=== PATIENT | female | born 1975 | race Caucasian/White ===

== ENCOUNTER 2016-10-22 10:51 | Outpatient (CLI) | payer OTHER ==
--- NOTE | 2016-10-22 11:33 | DIAGNOSTIC IMAGING REPORT ---
PROCEDURE: XR KNEE 4 VIEWS - LEFT INDICATION: KNEE PAIN TECHNIQUE: Four views. COMPARISON: Knee films dated 09/23/2012 FINDINGS: Osseous structures and joint spaces are normal. IMPRESSION: 1. Normal left knee.
== END 2016-10-22 23:00 ==
LOC: XR SRH 10:51
DX: M25.562 Pain in left knee (principal)